=== PATIENT | female | born 1980 | race Hispanic/Latino ===

== ENCOUNTER → 2020-10-12 | Outpatient (CLI) | payer OTHER ==
[~2020-10-12] MED LIST: BUPROPION HCL100 MG PO; MOBIC15 MG PO; NEURONTIN100 MG PO
== END ==
LOC: US 08:03
PROVIDERS: ATTEND Internal Medicine Gastroenterology
DX: Z72.89 Other problems related to lifestyle (principal)
CPT/HCPCS: 76705

== ENCOUNTER → 2020-10-19 | Day surgery (SDC) | payer OTHER ==
[~2020-10-19] MED LIST changes: +ETOMIDATE 2 MG/ML 10 ML INJ IV ONE; +FENTANYL CITRATE/PF 100MCG/2 ML INJ ONE; +MIDAZOLAM HCL 2 MG/2 ML VIAL ONE; +PROPOFOL IV EMULSION 10 MG/ML 20 ML VIAL ONE
[2020-10-19 14:15] VITALS: BP 121/69
== END | disposition home or self-care (01) ==
LOC: OR 09:47
PROVIDERS: ATTEND Internal Medicine Gastroenterology
DX: K29.50 Unspecified chronic gastritis without bleeding (principal); K44.9 Diaphragmatic hernia without obstruction or gangrene; Z98.84 Bariatric surgery status; K52.9 Noninfective gastroenteritis and colitis, unspecified; K62.89 Other specified diseases of anus and rectum; K64.8 Other hemorrhoids; G47.33 Obstructive sleep apnea (adult) (pediatric); F32.9 Major depressive disorder, single episode, unspecified; Z68.35 Body mass index [BMI] 35.0-35.9, adult; Z86.16 Personal history of COVID-19; Z83.79 Family history of other diseases of the digestive system
CPT/HCPCS: 43239; 45378; 45380; 81025; 87045; 87177; 87328; J2250; J3010

== ENCOUNTER → 2025-01-03 | Day surgery (SDC) | payer OTHER ==
[~2025-01-03] MED LIST changes: +CHANTIX; +DEXMEDETOMIDINE HCL 2 ML ONE; -ETOMIDATE 2 MG/ML 10 ML INJ IV ONE; +HYOSCYAMINE SULFATE 0.5 MG/ML INJ ONE; +IRON PO; +KRILL OIL 5001 EAC1 PO; +LIDOCAINE HCL 2% LOCAL INJ 5 ML SDV VIAL INJ ONE; +MELATONIN PO; -MIDAZOLAM HCL 2 MG/2 ML VIAL ONE; +MOTRIN200 MG PO; +MOUNJARO7.5 MG/0.5; -PROPOFOL IV EMULSION 10 MG/ML 20 ML VIAL ONE; +PROPOFOL IV EMULSION 50 ML IV ONE; +SODIUM CHLORIDE 0.9% 100 ML ONE; +VYVANSE50 MG
[2025-01-03] MEDS: LACTATED RINGER'S 1,000 ML ONE (07:15)
[2025-01-03 09:05] VITALS: TEMP 97.5
[2025-01-03 09:20] VITALS: BP 98/60; PULSE 83; RESP 16; O2SAT 98
== END | disposition home or self-care (01) ==
LOC: OR 06:38
PROVIDERS: ATTEND Internal Medicine Gastroenterology
DX: K31.89 Other diseases of stomach and duodenum (principal); K64.8 Other hemorrhoids; R73.03 Prediabetes; Z98.84 Bariatric surgery status; Z79.85 Long-term (current) use of injectable non-insulin antidiabetic drugs; Z01.818 Encounter for other preprocedural examination
CPT/HCPCS: 43239; 45378; 81025; J1980; J2003; J2470; J7050